=== PATIENT | male | born 1965 | race Caucasian/White ===

== ENCOUNTER 2020-10-12 11:26 | Outpatient (CLI) | payer BC ==
--- NOTE | 2020-10-12 11:51 | RAD ---
XR Foot Rt 3 View STANDARD HISTORY: Right heel pain FINDINGS: No acute fracture or dislocation is identified. There are mild degenerative changes in the first MTP joint. A small posterior calcaneal spur is present.
== END 2020-10-12 11:27 | disposition home or self-care (01) ==
LOC: BICRAD 11:26
PROVIDERS: ATTEND Family Medicine
DX: M79.671 Pain in right foot (principal)